=== PATIENT | female | born 1995 | race Caucasian/White ===

== ENCOUNTER 2023-02-16 12:26 | Emergency (ER) | payer MEDICAID | END 2023-02-16 13:10 | disposition home or self-care (01) | LOC: JD.ED 12:26 | DX: H66.001 Acute suppurative otitis media without spontaneous rupture of ear drum, right ear (principal); H60.501 Unspecified acute noninfective otitis externa, right ear; Z88.5 Allergy status to narcotic agent; Z91.09 Other allergy status, other than to drugs and biological substances | CPT/HCPCS: 99282 ==

== ENCOUNTER 2023-05-05 16:02 | Emergency (ER) | payer MEDICAID ==
[2023-05-05 17:12] LABS: INFLUENZA A NAA NEGATIVE (NEGATIVE); RESPIRATORY SYNCYTIAL VIR NAA NEGATIVE (NEGATIVE)
[2023-05-05 18:34] LABS: CORONAVIRUS COVID-19 NAA POSITIVE (NEGATIVE)
== END 2023-05-05 18:59 | disposition home or self-care (01) ==
LOC: JD.ED 16:02
DX: U07.1 COVID-19 (principal); Z90.49 Acquired absence of other specified parts of digestive tract; Z88.5 Allergy status to narcotic agent; Z91.048 Other nonmedicinal substance allergy status
CPT/HCPCS: 0241U; 99284; 99282